=== PATIENT | male | born 1930 | race Caucasian/White ===

== ENCOUNTER 2016-06-28 11:25 | Outpatient (CLI) ==
[2015-08-12 16:53] VITALS: BMI 27.2
--- NOTE | 2016-06-28 12:28 | DI ---
EXAM: Right foot three views HISTORY: Other specified disorders of soft tissues COMPARISON: None FINDINGS: No fracture or dislocation. Mild soft tissue prominence about the first MTP joint Mild o steoarthritis first MTP joint. Moderate osteoarthritis of the midfoot. Small plantar calcaneal spur . IMPERSSION: 1. No fracture or dislocation. 2. Osteoarthritis. 3. Small plantar calcaneal spur. 4. Mild soft tissue prominence about the first MTP joint.
== END 2016-06-28 11:26 | disposition home or self-care (01) ==
LOC: RAD 11:25
PROVIDERS: ATTEND General Practice
DX: M79.89 Other specified soft tissue disorders (principal); L53.9 Erythematous condition, unspecified
CPT/HCPCS: 87070

== ENCOUNTER 2016-06-28 13:20 | Outpatient (CLI) ==
[2015-08-12 16:53] VITALS: BMI 27.2
== END 2016-06-28 13:21 | disposition home or self-care (01) ==
LOC: LAB 13:20
PROVIDERS: ATTEND General Practice
DX: M79.89 Other specified soft tissue disorders (principal); L53.9 Erythematous condition, unspecified
CPT/HCPCS: 87070

== ENCOUNTER 2016-11-20 12:37 | Outpatient (CLI) ==
[2015-08-12 16:53] VITALS: BMI 27.2
[2016-11-20 13:17] LABS: BASOPHILS # (AUTO) 0.1 K/uL (0-0.2); BASOPHILS % (AUTO) 1.1 % (0.0-3.0); EOSINOPHILS # (AUTO) 0.1 K/ul (0.0-0.7); EOSINOPHILS % (AUTO) 1.5 % (0.0-7.0); HEMOGLOBIN 14.1 g/dl (14.0-18.0); IMMATURE GRANULOCYTE % (AUTO) 0.2 % (0.0-5.0); LYMPHOCYTES # (AUTO) 1.3 K/uL (0.60-3.4); LYMPHOCYTES % (AUTO) 27.6 (10.0-50.0); MEAN CORPUSCULAR HEMOGLOBIN 30.3 pg (27.0-31.0); MEAN CORPUSCULAR HGB CONC 32.8 (31.8-35.4); MEAN CORPUSCULAR VOLUME 92.5 fl (80.0-94.0); MONOCYTES # (AUTO) 0.4 K/uL (0.4-2.0); MONOCYTES % (AUTO) 9.3 (0-10); NEUTROPHILS # (AUTO) 2.8 K/ul (2.0-6.9); NEUTROPHILS % (AUTO) 60.3; PLATELET COUNT 203 10^3/uL (140-440); RED BLOOD COUNT 4.65 10^6/ul (4.70-6.10); WHITE BLOOD COUNT 4.71 K/ul (4.2-10.2)
[2016-11-20 13:38] LABS: BILIRUBIN,URINE Negative (NEGATIVE); KETONES,URINE Negative (NEGATIVE); LEUKOCYTE ESTERASE ,URINE Negative (NEGATIVE); NITRITE,URINE Negative (NEGATIVE); PROTEIN,URINE Negative (NEGATIVE); URINE, BLOOD Negative (NEGATIVE)
[2016-11-20 13:51] LABS: ADD URINE MICROSCOPIC NO
[2016-11-20 14:08] LABS: ALBUMIN 4.3 g/dL (3.4-5.0); ALBUMIN/GLOBULIN RATIO 1.34; ANION GAP 15.8; BILIRUBIN,TOTAL 1.37 mg/dL (0.00-1.20); BUN/CREATININE RATIO 16.19; CALCIUM 9.4 mg/dL (8.2-10.2); CHOL/HDL RATIO 4.4 (4.5-6.4); CREATININE 1.05 mg/dL (0.60-1.10); POTASSIUM 4.8 mmol/L (3.5-5.1); TOTAL PROTEIN 7.5 g/dL (5.8-8.1)
== END 2016-11-20 12:38 | disposition home or self-care (01) ==
LOC: LAB 12:37
PROVIDERS: ATTEND General Practice
DX: I63.9 Cerebral infarction, unspecified (principal); D51.9 Vitamin B12 deficiency anemia, unspecified; G62.9 Polyneuropathy, unspecified; G45.9 Transient cerebral ischemic attack, unspecified; R73.03 Prediabetes; R73.09 Other abnormal glucose; Z79.899 Other long term (current) drug therapy
CPT/HCPCS: 36415; 80053; 80061; 81001; 83036; 85025

== ENCOUNTER 2017-03-07 13:04 | Outpatient (CLI) | payer OTHER ==
[2015-08-12 16:53] VITALS: BMI 27.2
[2017-03-07 13:22] LABS: BASOPHILS # (AUTO) 0.1 K/uL (0-0.2); BASOPHILS % (AUTO) 1.3 % (0.0-3.0); EOSINOPHILS # (AUTO) 0.1 K/ul (0.0-0.7); HEMATOCRIT 44.8 % (42.0-52.0); HEMOGLOBIN 14.8 g/dl (14.0-18.0); IMMATURE GRANULOCYTE % (AUTO) 0.2 % (0.0-5.0); LYMPHOCYTES # (AUTO) 1.2 K/uL (0.60-3.4); LYMPHOCYTES % (AUTO) 25.4 (10.0-50.0); MEAN CORPUSCULAR HEMOGLOBIN 30.8 pg (27.0-31.0); MEAN CORPUSCULAR VOLUME 93.3 fl (80.0-94.0); MONOCYTES # (AUTO) 0.4 K/uL (0.4-2.0); MONOCYTES % (AUTO) 7.8 (0-10); NEUTROPHILS # (AUTO) 2.9 K/ul (2.0-6.9); NEUTROPHILS % (AUTO) 62.3; PLATELET COUNT 202 10^3/uL (140-440)
[2017-03-07 13:23] LABS: ADD URINE MICROSCOPIC NO; BILIRUBIN,URINE Negative (NEGATIVE); KETONES,URINE Negative (NEGATIVE); LEUKOCYTE ESTERASE ,URINE Negative (NEGATIVE); NITRITE,URINE Negative (NEGATIVE); PH,URINE 6.5 (5-9); PROTEIN,URINE Negative (NEGATIVE); URINE, BLOOD Negative (NEGATIVE)
[2017-03-07 14:24] LABS: ALBUMIN 4.4 g/dL (3.4-5.0); ALBUMIN/GLOBULIN RATIO 1.22; ANION GAP 15.3; BILIRUBIN,TOTAL 1.61 mg/dL (0.00-1.20); BUN/CREATININE RATIO 13.4; CALCIUM 10.6 mg/dL (8.2-10.2); CHOL/HDL RATIO 4.2 (4.5-6.4); CREATININE 0.97 mg/dL (0.60-1.10); POTASSIUM 4.3 mmol/L (3.5-5.1)
== END 2017-03-07 13:05 | disposition home or self-care (01) ==
LOC: LAB 13:04
PROVIDERS: ATTEND General Practice
DX: D51.9 Vitamin B12 deficiency anemia, unspecified (principal); E11.40 Type 2 diabetes mellitus with diabetic neuropathy, unspecified; Z79.01 Long term (current) use of anticoagulants; Z79.899 Other long term (current) drug therapy
CPT/HCPCS: 36415; 80053; 80061; 81001; 83036; 85025

== ENCOUNTER 2017-07-25 10:38 | Outpatient (CLI) | payer OTHER ==
[2015-08-12 16:53] VITALS: BMI 27.2
== END 2017-07-25 10:39 | disposition home or self-care (01) ==
LOC: FCC-LAB 10:38
PROVIDERS: ATTEND General Practice
DX: E83.52 Hypercalcemia (principal); E11.40 Type 2 diabetes mellitus with diabetic neuropathy, unspecified; I63.9 Cerebral infarction, unspecified; G45.9 Transient cerebral ischemic attack, unspecified; G62.9 Polyneuropathy, unspecified; D51.9 Vitamin B12 deficiency anemia, unspecified; E78.5 Hyperlipidemia, unspecified; Z79.01 Long term (current) use of anticoagulants; Z79.899 Other long term (current) drug therapy
CPT/HCPCS: 36415; 80053; 80061; 81001; 85025

== ENCOUNTER 2017-08-09 14:24 | Outpatient (CLI) ==
[2015-08-12 16:53] VITALS: BMI 27.2
--- NOTE | 2017-08-09 15:13 | US ---
EXAM: Right lower extremity venous Doppler History: Right leg pain. Technique: Multiple sonographic images through the right lower extremity were obtained. Color duple x Doppler was used to interrogate vascular flow. Findings: The right common femoral, greater saphenous, profunda, superficial femoral, popliteal, per jean-baptiste, posterior tibial and anterior tibial veins demonstrate spontaneous flow with normal compressio n and normal augmentation. Impression: No sonographic evidence for deep venous thrombosis
== END 2017-08-09 14:25 | disposition home or self-care (01) ==
LOC: RAD 14:24
PROVIDERS: ATTEND General Practice
DX: M79.604 Pain in right leg (principal); M79.89 Other specified soft tissue disorders

== ENCOUNTER 2017-12-27 12:28 | Outpatient (CLI) ==
[2015-08-12 16:53] VITALS: BMI 27.2
== END 2017-12-27 12:29 | disposition home or self-care (01) ==
LOC: FCC-LAB 12:28
PROVIDERS: ATTEND General Practice
DX: D51.9 Vitamin B12 deficiency anemia, unspecified (principal); I63.9 Cerebral infarction, unspecified; G62.9 Polyneuropathy, unspecified; K57.32 Diverticulitis of large intestine without perforation or abscess without bleeding; E11.40 Type 2 diabetes mellitus with diabetic neuropathy, unspecified; G45.9 Transient cerebral ischemic attack, unspecified; Z79.01 Long term (current) use of anticoagulants; Z79.899 Other long term (current) drug therapy
CPT/HCPCS: 36415; 80053; 80061; 81001; 83036; 85025

== ENCOUNTER 2018-01-06 14:25 | Outpatient (CLI) ==
[2015-08-12 16:53] VITALS: BMI 27.2
--- NOTE | 2018-01-06 15:09 | US ---
EXAM: Carotid ultrasound HISTORY: Headache COMPARISON: None TECHNIQUE: Carotid ultrasound was performed using Duplex imaging with murphy scale, color, and Doppler imaging performed. FINDINGS: Right carotid: There is atherosclerotic plaque in the common carotid and bulb/internal carotid arter y. Peak systolic velocity measurement in the right internal carotid artery is 0.5 meters per second. End-diastolic velocity measurement in the right internal carotid artery is 0.1 meters per second. Right internal to common carotid artery peak systolic velocity ratio is 0.8. Flow in the right verte bral artery is antegrade. Left carotid: There is atherosclerotic plaque in the common carotid and bulb/internal carotid artery . Peak systolic velocity measurement in the left internal carotid artery is 0.7 meters per second. End-diastolic velocity measurement in the left internal carotid artery is 0.1 meters per second. Lef t internal to common carotid artery peak systolic velocity ratio measures 0.8. Flow in the left vert ebral artery is antegrade. IMPRESSION: 1. Right internal carotid: Peak systolic velocity corresponds with mild (less than 50%) stenosis 2. Left internal carotid: Peak systolic velocity corresponds with mild (less than 50%) stenosis.
--- NOTE | 2018-01-06 15:11 | CT ---
EXAM: CT Head HISTORY: Headache COMPARISON: 07/28/1928 TECHNIQUE: CT head performed without contrast FINDINGS: There is no mass effect, midline shift, or intracranial hemmorhage. Ross white differenti ation is preserved. There is no extra-axial collection. The ventricles, sulci, and basal cisterns a re patent and symmetric. There is chronic ischemic disease of the white matter and cerebral volume l oss. There is no depressed calvarial fracture. The mastoid air cells are clear. The visualized para nasal sinuses are clear. There are intracranial atherosclerotic calcifications. IMPRESSION: 1. No acute intracranial abnormality. 2. 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
[2018-01-06 16:37] VITALS: BMI 26.6
== END 2018-01-06 14:26 | disposition home or self-care (01) ==
LOC: RAD 14:25
PROVIDERS: ATTEND General Practice
DX: K92.1 Melena (principal); R09.89 Other specified symptoms and signs involving the circulatory and respiratory systems; R51 Headache; R41.0 Disorientation, unspecified; I63.9 Cerebral infarction, unspecified; G45.9 Transient cerebral ischemic attack, unspecified; Z79.01 Long term (current) use of anticoagulants
CPT/HCPCS: 82272

== ENCOUNTER 2018-09-18 12:41 | Outpatient (CLI) | END 2018-09-18 12:42 | disposition home or self-care (01) | LOC: LAB 12:41 | PROVIDERS: ATTEND General Practice | DX: D51.9 Vitamin B12 deficiency anemia, unspecified (principal); E11.40 Type 2 diabetes mellitus with diabetic neuropathy, unspecified; Z79.01 Long term (current) use of anticoagulants; Z79.899 Other long term (current) drug therapy | CPT/HCPCS: 36415; 80053; 80061; 81001; 82607; 83036; 85025 ==

== ENCOUNTER 2018-12-16 12:58 | Observation (INO) | payer OTHER ==
[2018-12-16 13:57] VITALS: BMI 25.5
[2018-12-16] MEDS ORDERED: INFUVITE ADULT IV ONE (18:34)
[2018-12-16] MEDS: INFUVITE ADULT 10 ML in SODIUM CHLORIDE 0.45%-KCL 20 MEQ 1,000 ML IV SCH (18:43)
[2018-12-16] MEDS ORDERED: THIAMINE IM STA ×2 (19:54→23:41)
[2018-12-16] MEDS: NON-FORMULARY MEDICATION (Dabigatran Etexilate Mesylate [Pradaxa] 150 MG) PO SCH (20:16)
[2018-12-16] MEDS: LYRICA PO SCH (20:16)
--- NOTE | 2018-12-16 21:00 | CT ---
EXAM: CT Head HISTORY: Presyncope COMPARISON: 01/06/2018 TECHNIQUE: CT head performed without contrast FINDINGS: There is no mass effect, midline shift, or intracranial hemmorhage. Ross white differenti ation is preserved. There is no extra-axial collection. The ventricles, sulci, and basal cisterns a re patent and symmetric. There is chronic ischemic disease of the white matter and cerebral volume l oss. There is no depressed calvarial fracture. The mastoid air cells are clear. The visualized para nasal sinuses are clear. There are intracranial atherosclerotic calcifications. IMPRESSION: 1. No acute intracranial abnormality. 2. 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
--- NOTE | 2018-12-16 21:04 | CT ---
EXAM: CT chest without contrast HISTORY: Weight loss, nodule COMPARISON: None TECHNIQUE: CT chest performed without intravenous contrast. Coronal and sagittal reformatted images obtained. FINDINGS: Mild blunting of the left thyroid. Heart normal in size. Coronary calcifications. No pe ricardial effusion. Aorta normal in caliber. Moderate atherosclerosis. Esophagus unremarkable. Ev aluation for lymphadenopathy limited without contrast. No lymphadenopathy identified. Calcified med iastinal and hilar lymph nodes, consistent with old granulomatous disease. No acute abnormalities of the bones. Degenerative change in the spine. Central airway patent. Scattered subsegmental atelec tasis and/or scarring. No airspace consolidation. No pleural effusion. No pneumothorax. 5 mm nodu le left lung image 28. 3 mm nodule right lung image 23 mild emphysema. Please refer to separate rep ort CT abdomen pelvis regarding findings in the upper abdomen. IMPRESSION: 1. Scattered scarring and/or subsegmental atelectasis. No airspace consolidation. 2. Mild emphysema. 3. Two pulmonary nodules measuring up to [address] chest follow-up can be considered in 12 months to ensure stability. 4. Coronary calcifications. Atherosclerosis.
--- NOTE | 2018-12-16 21:09 | CT ---
EXAM: CT abdomen and pelvis without contrast. HISTORY: Weight loss, chest nodule TECHNIQUE: Multi-slice transaxial helical CT. Coronal and sagittal reformatons were performed. COMPARISON: 10/12/2015 FINDINGS: See same day CT chest for chest findings. Evaluation of the solid organs are limited without IV contrast. Spleen is normal in size. The gallb ladder has been removed. The pancreas and the bilateral adrenal glands appear grossly unremarkable. No hydronephrosis or renal calculus is seen. No intrahepatic biliary ductal dilation is seen. The bowel is not dilated. The prostate has been removed. Urinary bladder appears grossly unremarkab le. Scattered diverticuli are seen within the colon. A eyushogx-me-lsbtp amount of stool throughout the colon is seen. The appendix appears normal in size. No pelvic free fluid is seen. Moderate ca lcified plaques are present within the abdominal aorta. No retroperitoneal adenopathy is seen. The bones are osteopenic. Mild bilateral hip joint space narrowing is seen. Joint space narrowing and s mall osteophytes are seen at the bilateral sacroiliac joints. Mild multilevel lumbar spondylosis is seen. IMPRESSION: 1. No acute abdominal findings. 2. No CT explanation for weight loss. 3. Vlhxpzws-gu-yaoqr colonic stool. Correlate with constipation. 4. Prior cholecystectomy and prostatectomy. 5. Colonic diverticulosis. 6. Other senescent/chronic findings as detailed above.
[2018-12-16] MEDS: VITAMIN B-12 IM SCH (23:45)
[2018-12-17] MEDS ORDERED: INFUVITE ADULT IV ONE ×2 (06:40→18:56)
[2018-12-17] MEDS: INFUVITE ADULT 10 ML in SODIUM CHLORIDE 0.45%-KCL 20 MEQ 1,000 ML IV SCH ×2 (06:44→19:01)
[2018-12-17] MEDS: LYRICA PO SCH ×2 (08:49→20:50)
[2018-12-17] MEDS: NON-FORMULARY MEDICATION (Dabigatran Etexilate Mesylate [Pradaxa] 150 MG) PO SCH ×2 (08:49→20:50)
[2018-12-17] MEDS: VITAMIN B-12 IM SCH (17:29)
[2018-12-18] MEDS ORDERED: INFUVITE ADULT IV ONE (07:16)
[2018-12-18] MEDS: INFUVITE ADULT 10 ML in SODIUM CHLORIDE 0.45%-KCL 20 MEQ 1,000 ML IV SCH (07:20)
[2018-12-18] MEDS: VITAMIN B-12 IM SCH (08:41)
[2018-12-18] MEDS: NON-FORMULARY MEDICATION (Dabigatran Etexilate Mesylate [Pradaxa] 150 MG) PO SCH (08:42)
[2018-12-18] MEDS ORDERED: ARICEPT PO SCH (09:00)
[2018-12-18] MEDS ORDERED: NON-FORMULARY MEDICATION PO SCH (09:00)
[2018-12-18 09:59] VITALS: BP 124/61; TEMP 97.8
--- NOTE | 2018-12-18 11:32 | HP ---
DATE OF SERVICE: 12/16/18 CHIEF COMPLAINT: Weakness and knot on his chest. HISTORY OF PRESENT ILLNESS: Mr. Chi is a pleasant 88-year-old patient of Dr. Godinez who presented to the office with his daughter with complaints of a knot on his chest. He reports that he just noticed this a couple of weeks ago to the mid chest at the sternum area. He denies it being tender. His daughter was with him at the office visit. She reports that he was feeling very badly. He has been having light-headed spells, very dizzy, having a hard time walking. He has also been nauseous. He wants to stay in bed all day. His strength has declined. He has not used a walker in a very long time and he has been having to use his walker here lately. He complains of "being cold all the time". He denies any fever. He complains of having a bit of a cough. She reports that she had a very difficult time getting him to the office. He has had a shuffled gait. His appetite has been okay however he has noted to lose approximately 4 lbs since last office visit. Upon transferring him from the chair to the exam table, this is very difficult as he was extremely weak. The daughter reports this has been going on for approximately two weeks. He has not taken anything for nausea. PAST MEDICAL HISTORY: Atrial fibrillation Dermatitis Dyslipidemia Heartburn Hypertension Measles Mumps Peripheral neuropathy Sleep apnea TIA Varicella PAST SURGICAL HISTORY: Cataract extraction Cholecystectomy Dental extraction Fracture - unsure where this was, not recorded Joint replacement and prostatectomy FAMILY HISTORY: Not recorded. SOCIAL HISTORY: Former smoker, one pack per day, stopped at age 61. Reports occasional alcohol use and denies any substance abuse. MEDICATIONS: (CURRENT HOME) Lyrica 50 mg twice a day Pradaxa 150 mg twice a day ALLERGIES: ATORVASTATIN AND ADHESIVE TAPE REVIEW OF SYSTEMS: CONSTITUTIONAL: Denies fever, chills, nightsweats. He has had some weight loss. HEENT: No reports of headache. Denies any sore throat or nasal drainage. No reports of any headache. CARDIOVASCULAR: No reports of chest pain. He does have a history of atrial fibrillation, irregular heartbeat. Denies any orthopnea or peripheral edema. LUNGS: Denies any complaints of shortness of breath. He does complain of some cough. No reports of any congestion. No complaints of any histry of lung disease. GI: No complaints of abdominal pain. He has had some nausea. No reports of vomiting, diarrhea, constipation or blood in the stool. : No reports of dysuria, hematuria. No reports of UTI symptoms. MUSCULOSKELETAL: Does report some generalized weakness and does complain of some chronic right knee pain. NEUROLOGIC: He has had some dizziness and generalized fatigue and weakness. He has had some presyncopal feelings. PSYCHIATRIC: No complaints of anxiety, depression or mood changes. ENDOCRINE: No reports of diabetes mellitus or thyroid disease. INTEGUMENT: No reports of rashes, lesions or skin changes. PHYSICAL EXAMINATION: GENERAL: He is alert, oriented. VITAL SIGNS: In the office, weight 178 lbs, height 60 inches, BMI 34.8, temperature 97.8, pulse 75, respirations 16, blood pressure 95/61. Pulse ox 97% on room air. HEENT: Head normocephalic, atraumatic. Pupils are equal. Mucous membranes are moist. NECK: Supple. No lymphadenopathy. No carotid bruits auscultated. CARDIOVASCULAR: Regular rate and rhythm. He does have some right ankle edema and also to the moses. LUNGS: Diminished throughout. Breathing is stable. ABDOMEN: Soft, nontender. Bowel sounds are positive. NEUROLOGIC: He does complain of some dizziness when up and transferring from chair to table. There is no lateral weakness. No neurological deficits on exam. He is generalized weak. SKIN: Warm and dry without any rashes, lesions or wounds. LABS AND DIAGNOSTIC TESTIN12/02/18 hemoglobin 13.9, hematocrit 42.4, WBC 9.33, platelet count 187. On sodium 139.4, BUN 16.8, creatinine 0.93, glucose 107.5, LFTs within normal limits. Urinalysis on 12/02/18 was negative. ASSESSMENT: 1. Diffuse generalized weakness with presyncope, dizziness and gait disturbance. 2. Weight loss. 3. Nausea. 4. Hypotension. 5. History of atrial fibrillation. 6. Dyslipidemia. 7. History of dermatitis. 8. History of hypertension. 9. History of peripheral neuropathy. 10. History of sleep apnea. 11. History of TIA. 12. History of gastroesophageal reflux disease. PLAN: 1. Admit the patient as 23-hour observation. 2. Obtain CT of the chest, CT of the head, CT of the abdomen and pelvis. 3. EKG. 4. Start PT/OT evaluation. 5. The patient is very weak. The family is at bedside and agreeable to 23 hour admission. 6. Further orders and recommendations per Dr. Godinez. TIME SPENT: GREATER THAN 65 MINUTES MTDD
--- NOTE | 2018-12-24 13:37 | DS ---
DATE OF SERVICE: 12/18/18 VITALS AT DISCHARGE: Temperature 97.8, pulse 60, blood pressure 124/61, respiratory rate 16, O2 saturation 98% on room air. On telemetry he was running sinus rhythm at 65 beats per minute. LABS: WBC 7.48, hgb 13.6, hct 41.5, plt count 3025, hgb 12.2, hct 37.9, sodium 136.9, potassium 4.56, BUN 15.1, creatinine 0.81, NT PRO BNP 168, procalcitonin 0.05, TSH 1.690, T4 6.7. Urinalysis is negative. CT of the head was negative with chronic ischemic disease. CT of the chest shows scattered scaring, mild emphysema, two pulmonary nodules measuring up to 5mm. CT followup can be considered in 12 month to ensure stability. Coronary calcifications and atherosclerosis. The CT of the abdomen and pelvis showed no acute findings to explain the weight loss.Moderate to large colonic stool, Correlation with constipation, Prior cholecystectomy and prostatectomy, colonic diverticulosis and other chronic findings. HOSPITAL COURSE: The patient was seen in the office with his daughter with complaint of knot in his chest that he noticed a couple of weeks ago, he was very weak and he was very hard to get from the chair to the office exam table. He was having lightheaded spells, very dizzy and having a hard time walking with complaints of nausea. His strength was very declined. He had not used a walking in a very long time and he was having to use a walker. He was complaining of being cold all the time. He had a bit of a cough. He was having a difficult time getting around and had a difficult time getting to the office, he had a shuffled gait. His appetite has been okay however he had had a 4 pound weight loss. This has been going on for approximately two weeks. Decision was made to admit the patient to the hospital as a 23 hour observation, obtain a CT scan of the abdomen, CT head, CT of the chest, obtain lab work on the patient with PT/OT evaluation and an EKG. The patient was placed on telemetry monitoring. Home medications were resumed. The patient was started on B1 and B12 injections. At discharge the patient was take B1 and B12 intermuscular injection daily. Prescriptions were called to his pharmacy. These were to be given by the Home Health Nurse accompanying with teaching the family to give the intermuscular injections. DIET: Regular diet ACTIVITY: As tolerated with use of walking for safety precautions. FINAL DIAGNOSES: 1. Generalized weakness with presyncope, dizziness and gait disturbance 2. Failure to thrive 3. Nausea 4. Hypotension 5. History of atrial fibrillation 6. Dyslipidemia 7. History of dermatitis 8. History of hypertension 9. History of peripheral neuropathy 10.History of sleep apnea 11.History of TIA 12.History of gastroesophageal reflux disease PLAN: 1. He was to stop taking Lyrica. 2. The new medications were intramuscular daily B12 and intermuscular daily B1. 3. He was to start Aricept 5mg daily and resume his Pradaxa 150mg twice a day. 4. [facility] will be in contact with the patient to arrange visits for PT and OT. 5. He will follow up in the office the following week for a followup visit. TIME SPENT: GREATER THAN 30 MINUTES MTDD
== END 2018-12-18 16:10 | disposition home or self-care (01) ==
LOC: MEDSURG B 12:58
PROVIDERS: ADMIT General Practice; ATTEND General Practice
DX: R53.1 Weakness (principal); R42 Dizziness and giddiness; R11.0 Nausea; R05 Cough; R26.9 Unspecified abnormalities of gait and mobility; R55 Syncope and collapse; R63.4 Abnormal weight loss; I95.9 Hypotension, unspecified; E78.5 Hyperlipidemia, unspecified; R62.7 Adult failure to thrive
CPT/HCPCS: 36415; 80053; 81001; 83605; 83880; 84145; 84436; 84443; 85025; 87040; 93005; 93010; 96360; 96361; 96372

== ENCOUNTER 2019-01-16 18:06 | Inpatient (IN) ==
[2019-01-16 19:47] VITALS: BMI 24.7
[2019-01-16] MEDS: VITAMIN B-12 IM SCH (23:36)
[2019-01-16] MEDS: THIAMINE IM SCH (23:36)
[2019-01-17] MEDS ORDERED: INFUVITE ADULT IV ONE ×3 (00:03→21:32)
[2019-01-17] MEDS: PRADAXA PO SCH ×3 (00:05→21:16)
[2019-01-17] MEDS: INFUVITE ADULT 10 ML in D5%-1/2NS-KCL 20 MEQ/L IV SOL 1,000 ML IV SCH ×3 (00:06→22:37)
[2019-01-17] MEDS: TYLENOL PO PRN (00:06)
[2019-01-17] MEDS: ARICEPT PO SCH ×2 (00:06→08:38)
[2019-01-17] MEDS: VITAMIN B-12 IM SCH (08:37)
[2019-01-17] MEDS: THIAMINE IM SCH (08:37)
[2019-01-18] MEDS: ARICEPT PO SCH (08:17)
[2019-01-18] MEDS: VITAMIN B-12 IM SCH (08:17)
[2019-01-18] MEDS: THIAMINE IM SCH (08:17)
[2019-01-18] MEDS: PRADAXA PO SCH ×2 (08:17→20:41)
[2019-01-18] MEDS: NORVASC PO SCH (14:24)
[2019-01-18] MEDS: COZAAR PO SCH ×2 (14:24→20:38)
[2019-01-19] MEDS: PRADAXA PO SCH ×2 (08:46→20:23)
[2019-01-19] MEDS: ARICEPT PO SCH (08:47)
[2019-01-19] MEDS: COZAAR PO SCH ×2 (08:47→20:22)
[2019-01-19] MEDS: VITAMIN B-12 IM SCH (08:48)
[2019-01-19] MEDS: NORVASC PO SCH (08:48)
--- NOTE | 2019-01-19 08:48 | CT ---
EXAM: CT of the abdomen and pelvis with and without contrast History: Abdominal pain and weight loss. Comparison: CT abdomen pelvis 12/16/2018 Technique: Multiplanar CT images through the abdomen pelvis were obtained with and without the admin istration of IV contrast. Enteric contrast was also administered. Findings: Coronary calcifications. Lung bases are free of consolidation. No acute osseous abnormal ities. No renal stones and no hydronephrosis. Atherosclerotic vascular calcifications. Status post cholecy stectomy. No liver or splenic lesions. Pancreas is within normal limits. Adrenal glands are normal . No renal masses. No perinephric inflammation. No bowel obstruction. No free air and no ascites. No bladder wall thickening. Surgical clips seen within the pelvis. No perirectal inflammation. N o free air and no ascites. No pathologically enlarged lymph nodes. Scattered colonic stool. Impression: No acute intra-abdominal or pelvic process
[2019-01-19] MEDS: THIAMINE IM SCH (08:49)
--- NOTE | 2019-01-19 14:45 | RS.OTINEVL ---
Subjective - Patient information Date of Evaluation: 01/19/19 Date of Arrival on Unit: 01/16/19 Diagnosis: Weakness, weight loss, dehydration PRECAUTIONS: A risk for falls Usual Living Arrangement: With Spouse Living Arrangement Comments: lives with , seems to be having some problems Home Environment: House, Stairs (many) Medical History: CVA/TIA, Diabetes, Vascular Disease, Cancer Medical History Comments:: Afib, Irregular Heart beat, hypercholesterolemia, diverticulitis, Gastroesophageal reflux, radical prostatectomy, eye surgery, R TKA, OA,gall bladder removed, Surgical History: Knee Replacement Surgical History Comments:: Gall bladder, R TKA, radical prostatectomy, eye surgery, wrist surgery, Medications: Refer to chart Subjective Information/ Patient Comments:: "No, I do my shower myself." - Level of function Abilities prior to this admission: Pt was using a RW in the home to ambulate around. Pt was sitting at home. Pt has limited functioning with bathing ability. Pt is setup for self feeding. Pt does not drive a car.d Current Level of Function: Partially Dependent Comments: Pt needs to have someone with him at all times due to impaired safety. Pt is inconsistent with transfers, ambulation, and completing self cares. Current Equipment Used at Home: walker at times Pain Assessment - Pain Pain Score: 0 Interventions - Objective Patient Orientation: Person, Place Current Interventions: IV's, Telemetry Observation: Pt is confused and lost his balance at the beginning of the evaluation. Pt was independent with getting out of the the bed. Pt was leaning against the bed and had a difficult time standing and trying to walk with the rollator. Pt was changed to a RW and he did better. Functional Mobility - Ambulation Weight Bearing Status: FWB Assistive Device Used: Straight Cane - Safety Awareness Safety Awareness: Poor BROOKE INDEX SCORE: Pt is inconsistent with his scoring due to inconsistent performance. Additional Treatment Performed - Time with patient Length of Evaluation: 18 Total treatment time: 34 Activities Do you enjoy playing games?: Yes Would you be interested in leaving your room for activities?: Yes Would you enjoy group activities?: Yes Do you have difficulty with your vision?: Yes Patient Interests:: Reading Books/Magazines, Visiting/Socializing, Listening to Music Patient Education Patient Education: Education of diagnosis, Home Exercise Program, Education of Plan of Care Teaching Recipient: Patient Teaching Methods: Discussion, Demonstration Assessment Problem List:: Decreased level of function, Requires training/education, Decreased safety/Risk of falls, Weakness, Cognitive status limits abilities Rehab Potential: Good Further Therapy Indicated?: Yes Candidate for Swing Bed for Therapy Services?: Pt would benefit from skilled OT services in a LTC facility where he can have services for a longer length of time that. Evaluation Complexity: HISTORY: Medium, EXAM OF BODY SYSTEMS: Medium, CLINICAL DECISION MAKING: Medium Short Term Goals - Goals GOAL 1: . GOAL 2: . GOAL 3: . GOAL 4: . Manual Lathe Machinist Goals GOAL 1: . GOAL 2: . GOAL 3: . Plan Plan of Care: Therapeutic EX, Neuromuscular Re-Educ, Therapeutic Activity, Self- Care/Home Management Anticipated Discharge Destination: Manual Lathe Machinist Care Facility Treatment Diagnosis (ICD 10 Codes): Z91.81 Risk for falls Has the Physician been added for Co-signature?: Yes
--- NOTE | 2019-01-19 14:48 | RS.PTINEVL ---
Subjective - Patient information Date of Evaluation: 01/19/19 Date of Arrival on Unit: 01/16/19 Usual Living Arrangement: With Spouse Living Arrangement Comments: lives with , seems to be having some problems Home Environment: House, Stairs (many) Medical History Comments:: Cholecystectomy, 1991 Radical Prostatectomy, Right TKA, OA knees and ankles Subjective Information/ Patient Comments:: States he uses a walker sometimes at home. He asks how many times he is going to walk. - Level of function Comments: His niece states he has recently gotten weak and needed to use the walker. Current Equipment Used at Home: walker at times Interventions - Objective Patient Orientation: Person, Place Current Interventions: Telemetry Range of Motion - ROM Comments:: Bilateral UE and LE AROM is WFL's. Muscle Strength - Muscle Strength Comments:: LE strength generally 4/5 throughout. Sensation - Sensation Comments: Reports able to feel light touch, but reports numbness from knees to feet. Balance - Sitting Balance and Reactions Static Sitting Balance: Good Dynamic Sitting Balance: Good - Standing Balance and Reactions Static Standing Balance: Good (-) Dynamic Standing Balance: Good (-) Functional Mobility - Bed Mobility Comments:: Patient presents sitting in chair at bedside. - Transfers Sit to Stand: Supervision, CGA, 1 person assist Stand to Sit: Supervision, CGA, 1 person assist Stand Pivot Transfers: Supervision, 1 person assist, Verbal Cues, Tactile Cues Comments:: Patient requires verbal cues to keep the walker with him as he turned around to sit in chair. - Safety Awareness Safety Awareness: Poor BROOKE INDEX SCORE: NA, inconsistent to score Ambulation - Ambulation Weight Bearing Status: FWB Assistive Device Used: Rolling Walker Distance: 150 feet Assistance needed with Ambulation: Supervision, CGA Gait Deviations: Narrow Based gait Ambulation Comments: Mr. Chi demonstrates no loss of balance or unsteadiness. Consistently clears both feet. Factors Affecting Ambulation: Cognitive Status Treatment time - Time with patient Length of Evaluation: 14 mins Total treatment time: 14 Assessment - Assessment Problem List:: Decreased safety/Risk of falls, Cognitive status limits abilities Rehab Potential: Fair Candidate for Swing Bed for Therapy Services?: No, presents to be good candidate for Service Worker Helper Care. He is high functioning during our evaluation, but would need someone with him 24 hours a day for safety, due to cognitive status. Concerns raised on how much his is helping/able to help him at home. Comments: Nursing documentation and information from OT shows patient to be inconsistent with functional ability, mainly due to cognitive status. Evaluation Complexity: HISTORY: Medium (Confusion, Right TKA, OA, Radical Prostatectomy), EXAM OF BODY SYSTEMS: Medium (strength, balance, gait, sensation ), CLINICAL PRESENTATION: Medium (inconsistent ability per chart due to cognitive status), CLINICAL DECISION MAKING: Medium Plan Duration of Treatment: One Time Treatment Anticipated Discharge Destination: Service Worker Helper Care Facility Treatment Diagnosis (ICD 10 Codes): Z91.81 Has the Physician been added for Co-signature?: Yes
[2019-01-20] MEDS: NORVASC PO SCH (08:12)
[2019-01-20] MEDS: THIAMINE IM SCH (08:13)
[2019-01-20] MEDS: COZAAR PO SCH ×2 (08:13→20:23)
[2019-01-20] MEDS: ARICEPT PO SCH (08:13)
[2019-01-20] MEDS: VITAMIN B-12 IM SCH (08:14)
[2019-01-20] MEDS: PRADAXA PO SCH ×2 (08:18→20:23)
--- NOTE | 2019-01-20 09:09 | PN ---
DATE OF SERVICE: 01/19/19 SUBJECTIVE: The patient today is alert and responsive to verbal questioning and follows verbal commands. He is very hard of hearing and you have to raise your voice. He does understand the questions if he can hear it. He is not dyspneic or tachypenic. OBJECTIVE: His vital signs at 1256 p.m. 01/17/19 showed temperature of 97.8, pulse 48, blood pressure 150/64, respiratory rate 18, oxygen saturation 99 on room air. The patient denies any chest pain, abdominal pain or problem swallowing. He has no anorexia and no change in bowel habits. Lungs have some diminished breath sounds but clear. Heart is audible and regular with good tones with bradycardia. Abdomen soft with no remarkable tenderness. Bowel sounds are active. Lower extremities have no remarkable edema. I did ask him why he is losing weight and he told me that his is not cooking very much food and that is why he is losing weight. He told me that nobody believes him. He repeated that since yesterday. He is consistent with his claims for why he is losing weight. He does not have any anorexia. He also denies any nausea and his appetite is good and indeed he eats 100% of his meals. I will review all the things that have been done to this date. I had reviewed colonoscopy that was done in October 2015 which was unremarkable with one polyp. His x-rays were reviewed including Doppler studies. He had MRI, MRA of brain, CT scan of the head. He also had CT of the chest as well as abdomen and pelvis which were unremrkable. There is a nodule in the lung but needs to repeated in 12 months. The patient is progressively getting weaker. His MCV and MCH also were higher and is receiving B1 and B12 injections. He needs to have Physical Therapy for strenghthening. This should be continued and this patient will probably not go home until he has improved. The relative that was concerned was his daughter, Celestina. This patient is also receiving Boost, high protein three times a day. MTDD
--- NOTE | 2019-01-20 09:58 | PN ---
DATE OF SERVICE: 01/18/19 SUBJECTIVE: The patient is alert. I did mention about discomfort in his abdomen after a large supper last night. It took a whole night but he does not have any problems today. No pain. He denies any chest pain or abdominal pain. No problems urinating. He has movement of all extremities. I reviewed all of his contrast studies and noncontrast x-rays as well as vascular studies including MRI and MRA. There is none of those studies that would explain his weight loss. His PSA is normal. He had history of prostatic carcinoma. Thyroid is normal. The patient had 240 cc of liquid at breakfast and 75% lunch and 75% supper. The patient again is receiving Boost, high protein three times a day. The patient weighed much higher. I did question the nurses about the weight since he was 172 on admission and the nurse weighed this patient on the bed scale. We did weigh him on the bed scale about 10 p.m. last night and his weight was 176. I did weigh him on a standing scale at the bedside and he weighed 172 with just his gown. The patient has gained 4 lbs by the bedscale. I will see if he continues to gain weight. Interesting what physical therapy will do for him to get him walking and get him more strength. He needs to have the physical exercises. He is scheduled to have CT scan of abdomen and pelvis tomorrow with oral and IV contrast. Will see what the results will be. I will then get in touch with his daughter Celestina but will wait until the patient could be transferred to [facility] if he is elgible. NADINE
--- NOTE | 2019-01-20 13:41 | HP ---
DATE OF SERVICE: 01/16/19 CHIEF COMPLAINT: Progressive weakness, difficulty ambulating and getting out of bed, weight loss with lightheadedness and feeling bad. HISTORY OF PRESENT ILLNESS: The patient had been experiencing progressive weight loss over time and had lost a total of 30 lbs. He had lost 14 lbs since one year ago. He also complains of dizziness. He was admitted on 12/16/18 because of this. Workup was negative. He was discharged; however, the patient lost 6 pounds from that time to now. He is getting weaker and more confused at times. He was then admitted for further workup because of weight loss and progressive weakness. His daughter was very concerned that maybe he had lost 30 lbs and continuously losing weight. His appetite remained well. I did ask him why he had been losing weight and he claimed that his is not cooking enough food. 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 01/06/18 chest x-ray one view no acute cardiopulmomary process. 2. CT scan of the head without contrast because of headache, no acute intracranial abnormality. 3. 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 4. Carotid doppler 01/06/18 done because of headache and dizziness, right internal carotid peak systolic volume velocity with mild less than 50% stenosis , right internal carotid peak volume velocity corresponds with mild less than 50 % stenosis. 5. MRI brain with and without contrast because of dizziness and confusion, no intracranial mass, hemorrhage or acute infarct. Mild leukomalacia. This may be due to chronic ischemic small vessel disease or hypertensive encephalopathy done 01/07/18. 6. MRA done 01/07/18 focal moderate stenosis 50-60% stenosis of the left anterior cerebral artery proximal to the expected location of the anterior commumunicating artery which is absent. 40-50% stenosis distal 2 mm right middle cerebral artery M1 segment. Greater than 70% stenosis proximal right anterior M2 division. High-grade stenosis or near occlusion origin and proximal 4 mm left anterior temporal artery which is small and irregular distally. These findings may be accentuated by small vessel size and slow flow, [place] CTA may be considered to further define the anatomy. No flow limiting stenosis present in the posterior circulation. No aneurysm or vascular malformations are present in the [place]. 7. CT chest because of weight loss and nodule without contrast done 12/16/18 scattered scarring and/or subsegmental atelectasis. No airspace consolidation. Mild emphysema. Two pulmonary nodules measuring up to [address] chest followup can be considered in 12 months to ensure stability. Coronary calcification - atherosclerosis. 8. CT scan of the head without contrast because of weakness, dizziness and near syncopal episode compared with 01/06/18. This was done 12/16/18. No acute intracranial abnormality, chronic ischemic disease of the white matter and cerebral volume loss. 9. CT scan of the abdomen and pelvis without contrast 12/16/18, previous CT done 10/12/15. No acute intraabdominal findings. No CT explanation for weight loss, moderate large colonic stool, prior cholecystectomy and prostatectomy, colonic diverticulosis, moderate plaque present in the abdominal aorta, chronic changes involving bones and joints. He had a colonoscopy in 2016. FAMILY HISTORY: Two brothers had carcinoma and one brother had heart disease. Mother had malignancy. Father had heart disease and also one sister had carcinoma. SOCIAL HISTORY: The patient is and resides with his . This is the second marriage as I understand. He stopped smoking in 1989. He use to smoke one pack of cigarettes a day. He occasionally uses alcohol. No substance abuse. ALLERGIES: LIPITOR AND ADHESIVE. REVIEW OF SYSTEMS: CONSTITUTIONAL: No fever or chills but extremely fatigued and weak. He has difficulty getting out of bed without any help. DIAL PRINTER: The patient had very poor recollection of recent events. He has confusion and repetition. He had headaches but the CT findings were negative for any intracranial abnormalities except for the chronic changes. Gait is wobbly. VISUAL: Denies any double or blurred vision. He denies any loss of vision. AUDITORY: Extreme loss of hearing. You have to raise your voice for him to hear you. He uses a hearing aid. RESPIRATORY: He denies any shortness of breath. No significant cough, no hemoptysis. CARDIOVASCULAR: Denies any chest pain or chest tightness. GASTROINTESTINAL: Appetite remains well and denies any problems swallowing solids or liquids. No abdominal pain, diarrhea or constipation. No vomiting. No blood in the stool. GENITOURINARY: The patient does have some frequency of urination. Previous prostatectomy for malignancy. Denies any burning on urination now. MUSCULOSKELETAL: The patient is complaining of pain in the right knee. He had a previous TKR on the right. The patieht had some extreme weakness of both lower extremities as well as upper. He has problems getting from sitting to standing or from bed to standing position without help. He also complains of some numbness and tingling sensation in both lower extremities. This patient has an elevated MCV and MCH and that may be the reason for the tingling sensations although he also had a prediabetes. The patient sometimes would have neuropathy secondary to an elevated blood sugar even if it is not the diabetic level. INTEGUMENT: The patient does go to a home service demonstrator for some chronic recurrent dermatitis at times. No acute eruptions at this time and no pruritis. ENDOCRINE: No polyuria or polydipsia. HEMATOLOGY: Mild to moderate anemia with elevated MCV and MCH. No history of prolonged bleeding or spontaneous bleeding. This patient is on direct oral anticoagulant because of the atrial fibrillation. His echocardiogram however now shows sinus bradycardia without atrial fibrillation. PSYCHIATRIC: The patient's affect appears to be normal although he has very poor recollection of the recent events, sometimes gets confused and forgetful. He does not remember names including close relatives. PHYSICAL EXAMINATION: GENERAL: We have an 88-year-old male admitted to the hospital because of increasing extreme weakness, continued weight loss, increasing forgetfulness. The family, daughters are concerned about his weight loss. He also had previous headaches. He is admitted for further workup and physical therapy for strengthening probably longer physical therapy before going home. He is alert and responsive and follows verbal commands. You have to raise your voice since he could not hear. It is more if he doesn't have his hearing aid. VITAL SIGNS: On admission 01/16/19 temperature 98 oral, pulse 56, blood pressure 173/69, respiratory rate 18, oxygen saturation 99 on room air and 5'10 inches, 172 lbs and 1 oz. HEAD: Unremarkable. Scalp: No active dermatitis. Face is symmetrical and equal with no facial weakness and no significant tenderness to palpation and/or pressure in the frontal and maxillary sinus areas. EYES: Pupils equal/reactive to light about 3 mm in size and round. No nystagmus , vertical and horizontal. Visual field grossly normal. Conjunctivae not pale. Sclerae not icteric. MOUTH: Unremarkable. Dentures. THROAT: No inflammation, tumors or exudate. NECK: No masses. No bruit. No tenderness. No rigidity. CHEST: Symmetrical and equal with good expansion with no remarkable tenderness. LUNGS: Breath sounds are heard on both sides with occasional clicks at the bases. No wheezing. HEART: Audible and now regular, not tachycardic, no murmurs. ABDOMEN: Soft with no remarkable tenderness, no masses, no bruit. No hernias. Bowel sounds are active. EXTERNAL GENITALIA: Not examined. RECTAL: Done on admission 01/06/18. Anal sphincter then was slightly weak. Rectal canal free of tumor, mass. Stool is brownish in color. No blood. LOWER EXTREMITIES: Essentially symmetrical and equal except for the right knee that is bigger than the left side from the previous surgery with 1+ pitting edema. UPPER EXTREMITIES: Symmetrical and equal. ASSESSMENT: 1. Progressive continuous weight loss, cause undetermined. 2. Progressive weakness, unable to get out of bed on his own. 3. History of atrial fibrillation on Pradaxa. 4. History of transient ischemic attack admitted a few times in a [facility]. 5. 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 6. Obstructive sleep apnea not using CPAP. 7. Hypertension, uncontrolled. 8. History of GERD. 9. Senile dementia, mild to moderate. MMSE score 23. 10. Progressive weight loss, moderate now 30 lbs, 6 lbs in the last month alone. PLAN: No workup probably will be done since most of them done previously is CT scan of the abdomen with oral and IV contrast. His renal panel is normal. Also needs probably to have an endoscopy since it was not done although his appetite appears to be normal or good. He had colonoscopy in 2016. Will see if his weight will reverse with increased amount of calories. This patient at this time does not have any obvious findings to cause the weight loss. PROGNOSIS: Guarded. TIME SPENT: GREATER THAN 65 MINUTES MTDD
[2019-01-21] MEDS: TYLENOL PO PRN (01:39)
[2019-01-21 04:53] VITALS: BP 152/73; TEMP 98.3
[2019-01-21] MEDS: ARICEPT PO SCH (08:34)
[2019-01-21] MEDS: COZAAR PO SCH (08:34)
[2019-01-21] MEDS: NORVASC PO SCH (08:34)
[2019-01-21] MEDS: THIAMINE IM SCH (08:35)
[2019-01-21] MEDS: VITAMIN B-12 IM SCH (08:35)
[2019-01-21] MEDS: PRADAXA PO SCH (08:36)
--- NOTE | 2019-01-21 13:35 | DS ---
DATE OF SERVICE: 01/21/19 DISCHARGE DIAGNOSES: 1. Progressive continuous weight loss, cause undetermined. 2. Progressive weakness, unable to get out of bed on his own. 3. History of atrial fibrillation on Pradaxa. 4. History of transient ischemic attack, admitted a few times in a [facility]. 5. Peripheral neuropathy to the lower extremities probably seondary to B complex deficiency plus diabetes. 6. Obstructive sleep apnea not using CPAP. 7. Hypertension, uncontrolled. 8. History of gastroesophageal reflux disease. 9. Senile dementia, mild to moderate with mini mental status exam score of 23. 10. Progressive weight loss, moderate, now 30 lbs, 6 lbs in the last month alone. BRIEF HISTORY OF PRESENT ILLNESS/HOSPITAL COURSE: Mr. Chi is a pleasant 88-year-old patient of Dr. Godinez who presented as a direct admit with complaints of progressive weight loss of approximately 30 lbs. He had lost 14 lbs since one year ago. He also had complaints of dizziness. He was admitted on 12/16/18 because of this. Workup was negative. He was discharged. However, the patient has lost 6 lbs from that time to now. He is getting weaker and more confused at times. He was then admitted for further workup because of weight loss and progressive weakness. His daughter had made a phone call to Dr. Godinez and myself with concerns about the weight loss and reports that he had lost approximately 30 lbs, that his appetite had remained well, however he had just not been eating. Dr. Godinez did ask him why he had been losing weight and he claimed that his had not been cooking enough food. The patient was admitted. CT scan of the abdomen and pelvis was completed. The results of the CT scan of the abdomen and pelvis revealed no acute intraabdominal or pelvic process. Lab work was completed while the patient was in the hospital. CBC was stable. Chem panel was stable. CEA was negative. PSA normal. B12 normal. Procalcitonin negative. NT-Pro-BNP normal at 115. TSH normal at 1.830. Urinalysis was negative. The patient will be discharged on the same medications. He will resume his regular home medications. DISCHARGE DIET: Discharge diet is diet as tolerated with a regular diet. DISCHARGE ACTIVITY LEVEL: He will be working with physical and occupational therapy to improve on his balance and gait. Currently he is weak and unsteady with his gait. FOLLOWUP INSTRUCTIONS: He will followup after being discharged from [facility] with Dr. Godinez. PLAN: 1. We will continue to follow the patient after he is released from [facility]. 2. Further orders and recommendations per Dr. Godinez. Dr. Godinez did mention in his History and Physical that the patient would probably need an endoscopy done at some point. He has had a recent colonoscopy and that an endoscopy would probably be needed in the future due to the persistent weight loss. He did say that he would see if the weight would reverse with an increased amount of calories and that the patient at this time does not have any obvious findings to cause the weight loss. 3. We will continue to follow along with this patient. Please see the detailed History and Physical per Dr. Godinez. TIME SPENT: GREATER THAN 30 MINUTES MTDD
--- NOTE | 2019-01-22 14:29 | PN ---
DATE OF SERVICE: 01/19/19 SUBJECTIVE: Temperature today 97.9, pulse rate 74, blood pressure 100/58, 02 sat 100% on room air. Telemetry - he is running sinus rhythm at 71 bpm. Today his family is at the bedside, he is sitting up in the chair. He tells me he walked with Physical Therapy today. Today, he had a CT scan of the abdomen and pelvis completed. This was done with and without contrast. It did show no acute intraabdominal or pelvic process. No labs were completed today. He had no complaints today. He denied any complaints of nausea. He denied any complaints of diarrhea. He denied any complaints of abdominal pain. His lungs were were clear to auscultation. Heart regular rate and rhythm. Abdomen is soft. bowel sounds were positive all four quads. No lower extremity edema. Overall he was feeling improved today. He still complains of some weakness and having difficulty with ambulation. NADINE
--- NOTE | 2019-01-23 11:43 | PN ---
DATE OF SERVICE: 01/20/19 SUBJECTIVE: Mr. Chi today is up to the chair. he is resting comfortably. His is at the bedside. He has no complaints today. OBJECTIVE: Vital signs today: Blood pressure 112/68, temperature 98.1, pulse rate recheck today was initially checked at 37 but recheck was 59. On telemetry today he has been running sinus sb 56 to 65. Blood pressure 131/62 recorded and 112/68 recorded. Respiratory rate 16, 02 sat 97% on room air. No new labs were drawn today. We are waiting on [facility] to decided whether or not the patient will be accepted there for rehab. LUNGS: Today his lungs are clear. HEART: Regular rate and rhythm. There is no edema to his lower extremity. He has no complaints voiced today. PLAN: Further orders and recommendations per Dr. Godinez. The patient continues to work with physical therapy. [facility]
== END 2019-01-21 15:00 | DRG 641 ==
LOC: MEDSURG B 18:06
PROVIDERS: ADMIT General Practice; ATTEND General Practice
DX: R63.4 Abnormal weight loss (principal); R42 Dizziness and giddiness; E53.9 Vitamin B deficiency, unspecified; E11.9 Type 2 diabetes mellitus without complications; G62.9 Polyneuropathy, unspecified; G47.33 Obstructive sleep apnea (adult) (pediatric); I48.91 Unspecified atrial fibrillation; I10 Essential (primary) hypertension; K21.9 Gastro-esophageal reflux disease without esophagitis; F03.90 Unspecified dementia, unspecified severity, without behavioral disturbance, psychotic disturbance, mood disturbance, and anxiety; Z79.01 Long term (current) use of anticoagulants
CPT/HCPCS: 36415; 80053; 81001; 82378; 82607; 83036; 83090; 83880; 84145; 84153; 84439; 84443; 85025; 93005; 93010; 97802